=== PATIENT | female | born 1960 | race Caucasian/White ===

== ENCOUNTER 2021-08-07 13:29 | Outpatient (CLI) | payer SELFPAY | END 2021-08-07 13:30 | disposition home or self-care (01) | LOC: AMB 08-18 08:16 | PROVIDERS: Visit Provider Emergency Medicine Emergency Medical Services | DX: S69.92XA Unspecified injury of left wrist, hand and finger(s), initial encounter (principal); W01.0XXA Fall on same level from slipping, tripping and stumbling without subsequent striking against object, initial encounter; Y92.524 Gas station as the place of occurrence of the external cause ==